=== PATIENT | female | born 1990 | race African-American/Black ===

== ENCOUNTER 2017-02-11 11:34 | Emergency (ER) | payer BC, SELFPAY ==
--- NOTE | 2017-02-11 13:00 | RAD ---
RIGHT FOOT THREE VIEWS: HISTORY: Right foot pain. FINDINGS/IMPRESSION: No fracture, dislocation, or bony destruction is identified. POS: C
== END 2017-02-11 12:35 | disposition home or self-care (01) ==
LOC: NAV ERS 11:34
DX: S90.121A Contusion of right lesser toe(s) without damage to nail, initial encounter (principal); W18.40XA Slipping, tripping and stumbling without falling, unspecified, initial encounter

== ENCOUNTER 2018-03-07 20:14 | Emergency (ER) | payer BC ==
[2018-03-07] MEDS ORDERED: Ondansetron ODT 4 MG TAB ONE (20:28)
[2018-03-07] MEDS ORDERED: Acetaminophen 500 MG TAB ONE (20:28)
[2018-03-07 20:43] LABS: Bilirubin Small (Negative); Blood, Urine Negative (Negative); Clarity Clear (Clear); Glucose, Urine (Dipstick) Negative (Negative); Leukocyte Negative (Negative); Nitrite Negative (Negative); Protein, Urine (Dipstick) Trace mg/dL (Neg-Trace)
[2018-03-07 20:44] LABS: Pregnancy Test - Urine (BHCG) Negative (Negative); Pregu Control Background? CLEAR/WHITE (CLR/WHITE); Pregu Control Bar Appear? YES (CONTROL BAR); Specific Gravity 1.035 (1.002-1.036); Specific Gravity, Urine 1.035 (1.002-1.036)
== END 2018-03-07 21:35 | disposition home or self-care (01) ==
LOC: NAV ERS 20:14
DX: K52.9 Noninfective gastroenteritis and colitis, unspecified (principal)
CPT/HCPCS: 81003; 81025; 87804; 99284; Q0162

== ENCOUNTER 2019-04-08 08:58 | Outpatient (CLI) | payer OTHER, BC ==
--- NOTE | 2019-04-08 10:38 | ULT ---
OB ULTRASOUND: HISTORY: Size and dates. FINDINGS: A live intrauterine gestation is seen with measurements corresponding to an estimated gestational age of 21 weeks 0 days and CHANO at 08/19/2019. The estimated weight measures 3912 grams (45th perce ntile by Hadlock criteria). measurements are as follows: BPD 4.99 cm, 21 weeks 0 days HC 18.7 cm, 21 weeks 0 days AC 16.3 cm, 21 weeks 2 days FL 3.38 cm, 20 weeks 4 days heart rate measures 136 b.p.m. Placenta is posterior without placenta previa. DEWAYNE measures 17 cm. A 3-vessel cord, cord insertion, kidneys, bladder, stomach, 4-chamber heart, lateral ventricles , cerebellum, spine, and lips/nose, upper and lower extremities are visualized. No definite ab normalities are seen. IMPRESSION: Single live intrauterine of 21 weeks estimated gestational age and estimated date of delive ry at 08/19/2019. POS: OFF
== END 2019-04-08 08:59 | disposition home or self-care (01) ==
LOC: NAV ULT 08:58
PROVIDERS: ATTEND Family Medicine
DX: Z34.82 Encounter for supervision of other normal pregnancy, second trimester (principal); Z3A.21 21 weeks gestation of pregnancy
CPT/HCPCS: 76805

== ENCOUNTER 2019-10-03 12:36 | Emergency (ER) | payer OTHER ==
[2019-10-03] MEDS ORDERED: Acetaminophen 500 MG TAB ONE (12:52)
[2019-10-05 13:03] LABS: SARS-CoV-2 MS2 Positive; SARS-CoV-2 N Gene Negative; SARS-CoV-2 S Gene Negative; SARS-CoV-2 by NAA Not Detected (NotDetected); SARS-CoV-2 orf1ab Negative
== END 2019-10-03 13:32 | disposition home or self-care (01) ==
LOC: NAV ERS 12:36
DX: J02.9 Acute pharyngitis, unspecified (principal); Z20.828 Contact with and (suspected) exposure to other viral communicable diseases
CPT/HCPCS: 87081; 87430; 87635; 99284; U0003

== ENCOUNTER 2022-12-20 14:23 | Emergency (ER) | payer OTHER, SELFPAY | END 2022-12-20 14:50 | disposition home or self-care (01) | LOC: NAV ERS 14:23 | DX: D17.21 Benign lipomatous neoplasm of skin and subcutaneous tissue of right arm (principal) | CPT/HCPCS: 99282 ==